=== PATIENT | male | born 1965 | race Caucasian/White ===

== ENCOUNTER 2017-03-07 14:04 | Emergency (ER) | payer OTHER ==
--- NOTE | 2017-03-07 14:42 | EDM.PDOC ---
ED HPI Trauma - General Chief Complaint: Upper Extremity Injury/Pain Stated Complaint: LT SHOULDER(COLLAR BONE) HURTS Time Seen by Provider: 03/07/17 14:42 Source: Reports: Patient History Limitations: Reports: No limitations - History of Present Illness INITIAL COMMENTS - FREE TEXT/NARRATIVE: HISTORY AND PHYSICAL: [52-year-old male who has had difficulty with his clavicles in the past from playing ball, presents with left clavicle pain with lifting] History of Present Illness: [Several days of pain is improved by morning but then turns with any movement lifting] Review of Systems: As per history of present illness and below otherwise all systems reviewed and negative. Past medical history: As per history of present illness and as reviewed below otherwise noncontributory. Surgical history: As per history of present illness and as reviewed below otherwise noncontributory. Social history: No reported history of drug or alcohol abuse. Family history: As per history of present illness and as reviewed below otherwise noncontributory. Physical exam: Alert gentleman denies any need for pain medication. Answers questions appropriate HEENT: Atraumatic, normocehpalic, pupils reactive, negative for conjunctival pallor or scleral icterus, mucous membranes moist, throat clear, neck supple, nontender, trachea midline. Lungs: Clear to auscultation, breath sounds equal bilaterally, chest tender over left clavicle. Heart: S1S2, regular, negative for clicks, rubs, or JVD. Abdomen: Soft, nondistended, nontender. Negative for masses or hepatossplenmegaly. Negative for costovertebral tenderness. Pelvis: Stable nontender. Genitourinary: Deferred. Rectal: Deferred Extremities: Atraumatic, negative for cords or calf pain. Neurovascular unremarkable. Neuro: Awake, alert, oriented. Cranial nerves II through XII unremarkable. Cerebellum unremarkable. Motor and sensory unremarkable throughout. Exam nonfocal. No fractures were noted on your x-ray. You do remain tender with examination. Diagnostics: [Left clavicle x-ray] Therapeutics: [] Impression: [chondritis] Plan: Tylenol arthritis twice a day Should your pain continue with suggest seeing the orthopedic [facility] [address], [address] [place] [address] ] Definitive disposition and diagnosis as appropriate pending reevaluation and review of above. Occurred When: yesterday Occurred Where: home Method of Injury: unknown Severity: moderate Pain/Injury Location: Reports: chest Consciousness: Reports: unsure Associated Symptoms: Reports: no other symptoms Allergies/ADRs: Allergies No Known Allergies Allergy (Verified 03/07/17 14:41) Home Medications: Ambulatory Orders Aspirin [Adult Low Dose Aspirin EC] 81 mg PO DAILY 03/07/17 [Confirmed 03/07/17] Hydrochlorothiazide 25 mg PO DAILY 03/07/17 [Confirmed 03/07/17] Insulin Glargine,Hum.Rec.Anlog [[place]ou[place]o Solostar] 30 unit SQ BEDTIME 03/07/17 [ Confirmed 03/07/17] Lisinopril 10 mg PO DAILY 03/07/17 [Confirmed 03/07/17] Metoprolol Tartrate 50 mg PO BID 03/07/17 [Confirmed 03/07/17] Nitroglycerin [Nitrostat] 0.4 mg SL Q5M PRN 03/07/17 [Confirmed 03/07/17] Prasugrel HCl [Effient] 10 mg PO DAILY 03/07/17 [Confirmed 03/07/17] Testosterone Cypionate [Depo-Testosterone] 200 mg IM WEEKLY 03/07/17 [Confirmed 03/07/17] atorvaSTATin [Lipitor] 40 mg PO BEDTIME 03/07/17 [Confirmed 03/07/17] metFORMIN HCl [Metformin HCl] 1,000 mg PO BID 03/07/17 [Confirmed 03/07/17] Review of Systems - Review of Systems Review Of Systems: ROS reveals no pertinent complaints other than HPI. Trauma Exam - Physical Exam Exam: See Below (See dictated) Course - Vital Signs Last Recorded V/S: Last Vital Signs Temp 36.4 C 03/07/17 16:01 Pulse 69 03/07/17 16:01 Resp 16 03/07/17 16:01 BP 120/70 03/07/17 16:01 Pulse Ox 96 03/07/17 16:01 - Orders/Labs/Meds Orders: Active Orders 24 hr Category Date Time Status Clavicle Lt [CR] Stat Exams 03/07/17 14:45 Taken Departure - Departure Time of Disposition: 16:04 Disposition: Home, Self-Care 01 Condition: good Clinical Impression: Pain of left clavicle Forms: ED Department Discharge - My Orders Last 24 Hours: My Active Orders 03/07/17 14:45 Clavicle Lt [CR] Stat - Assessment/Plan Last 24 Hours: My Active Orders 03/07/17 14:45 Clavicle Lt [CR] Stat
[2017-03-07 16:02] VITALS: BP 120/70
--- NOTE | 2017-03-09 16:44 | CR ---
EXAM DATE: 03/07/17 PATIENT'S AGE: 52 Patient: ADY DAVIS Facility: [place], [place] Site . Site : 1965 Study: XRay Extremity Left clavicle [id number]/6/2017 3:09:48 PM Ordering Physician: Doctor Sampson Final Report: Indication: Pain Technique: Left clavicle 2 views Comparison: None Findings: Bones: Alignment is normal. No fractures or bone lesions. Joint spaces: Unremarkable. Soft tissues: Unremarkable. Impression: No acute or significant findings to explain pain. Dictated by George Grimm MD @ 03/07/2017 3:42:04 PM Dictated by: George Grimm MD @ 03/07/2017 15:42:07 (Electronic Signature) Report Signed by Proxy. [facility]OSPITALElvin
== END 2017-03-07 16:14 | disposition home or self-care (01) ==
LOC: MW.ED 14:04
DX: M25.512 Pain in left shoulder (principal); M94.8X9 Other specified disorders of cartilage, unspecified sites; Z79.82 Long term (current) use of aspirin; Z79.4 Long term (current) use of insulin; Z79.899 Other long term (current) drug therapy
CPT/HCPCS: 73000-26-LT; 73000-LT; 99282; 99283

== ENCOUNTER 2017-10-06 08:34 | Day surgery (SDC) | payer OTHER ==
[~2017-10-06 08:34] MED LIST: Lactated Ringers 1,000 ML IV SCH
--- NOTE | 2017-10-06 09:33 | PCM.PREANE ---
Preanesthetic Assessment - Anesthesia/Transfusion/Family Hx Anesthesia History: Prior Anesthesia Without Reaction Family History of Anesthesia Reaction: No Transfusion History: No Prior Transfusion(s) - Review of Systems General: No Symptoms Pulmonary: No Symptoms Cardiovascular: No Symptoms Gastrointestinal: No Symptoms Neurological: No Symptoms Other: Reports: None - Physical Assessment NPO Status Date: 10/05/17 NPO Status Time: 23:00 O2 Sat by Pulse Oximetry: 96 Respiratory Rate: 16 Vital Signs: Last Vital Signs Temp 36.5 C 10/06/17 09:00 Pulse 82 10/06/17 09:00 Resp 16 10/06/17 09:00 BP 140/81 10/06/17 09:00 Pulse Ox 96 10/06/17 09:00 Height: 1.83 m Weight: 126.552 kg ASA Class: 3 Mental Status: Alert & Oriented x3 Airway Class: Mallampati = 2 Dentition: Reports: Normal Dentition ROM/Head Extension: Full Lungs: Clear to Auscultation, Normal Respiratory Effort Cardiovascular: Regular Rate, Regular Rhythm - Allergies Allergies/Adverse Reactions: Allergies Allergy/AdvReac Type Severity Reaction Status Date / Time No Known Allergies Allergy Verified 03/07/17 14:41 - Blood Product(s) Available: None - Acknowledgements Anesthesia Type Planned: MAC Pt an Appropriate Candidate for the Planned Anesthesia: Yes Alternatives and Risks of Anesthesia Discussed w Pt/Guardian: Yes Pt/Guardian Understands and Agrees with Anesthesia Plan: Yes Additional Comments: PMH, CAD with vasospastic angina and stents x 3, AMI in 1015, HTN, HLD, DM2, had SADIA but sx relieved with UP3, last sleep study was normal for SDAIA PreAnesthesia Questionnaire Cardiovascular History: Reports: CAD, High Cholesterol, Hypertension, CO, Stents Respiratory History: Reports: Other (See Below) Other Respiratory History: sleep apnea in the past, previous surgery for this Gastrointestinal History: Reports: Other (See Below) Other Gastrointestinal History: occasional heartburn Genitourinary History: Reports: None Musculoskeletal History: Reports: Arthritis Endocrine/Metabolic History: Reports: Diabetes, Type II, Obesity/BMI 30+ - Past Surgical History Head Surgeries/Procedures: Reports: None HEENT Surgical History: Reports: Adenoidectomy, Tonsillectomy, Other (See Below) Other HEENT Surgeries/Procedures: sleep apnea surgery (T&A, uvulectomy and portion of soft palate removed -one surgery for tx of sleep apnea) Cardiovascular Surgical History: Reports: Coronary Artery Stent Musculoskeletal Surgical History: Reports: Other (See Below) Other Musculoskeletal Surgeries/Procedures:: right great toe surgery joint fusion with bone graft - SUBSTANCE USE Smoking Status *Q: Never Smoker Second Hand Smoke Exposure: No Recreational Drug Use History: No - HOME MEDS Home Medications: Home Meds Hydrochlorothiazide 25 mg PO DAILY 03/07/17 [History] Insulin Glargine,Hum.Rec.Anlog [Toujeo Solostar] 30 unit SQ BEDTIME 03/07/17 [ History] Lisinopril 10 mg PO DAILY 03/07/17 [History] Nitroglycerin [Nitrostat] 0.4 mg SL Q5M PRN 03/07/17 [History] Prasugrel HCl [Effient] 10 mg PO DAILY 03/07/17 [History] Testosterone Cypionate [Depo-Testosterone] 0.5 ml IM ASDIRECTED 03/07/17 [ History] atorvaSTATin [Lipitor] 20 mg PO BEDTIME 03/07/17 [History] metFORMIN HCl [Metformin HCl] 1,000 mg PO BID 03/07/17 [History] Aspirin [[place] Aspirin] 81 mg PO DAILY 10/01/17 [History] Empagliflozin [Jardiance] 25 mg PO ASDIRECTED 10/01/17 [History] Insulin Lispro [Humalog Kwikpen U-100] 1 injection SUBCUT ASDIRECTED 10/01/17 [ History] Nebivolol HCl [Bystolic] 5 mg PO DAILY 10/01/17 [History] Tadalafil [Cialis] 20 mg PO ASDIRECTED PRN 10/01/17 [History] - CURRENT (IN HOUSE) MEDS Current Meds: Current Medications Lactated Ringer's (Ringers, Lactated) 1,000 mls @ 125 mls/hr IV ASDIRECTED DAGOBERTO Last Admin: 10/06/17 09:03 Dose: 125 mls/hr
[2017-10-06] MEDS ORDERED: Lidocaine 2% 5 ML SDV ONE (11:05)
[2017-10-06] MEDS ORDERED: Propofol 200 MG/20 ML SDV ONE ×2 (11:05→11:06)
--- NOTE | 2017-10-06 11:53 | PCM.OPNOTE ---
- General Post-Op/Procedure Note Date of Surgery/Procedure: 10/06/17 Operative Procedure(s): colonoscopy w bx Findings: see dict [id number] Pre Op Diagnosis: scrn colonoscopy Post-Op Diagnosis: colon polyp Anesthesia Technique: Moderate Sedation Primary Surgeon: Luca Fernandez Pathology: question polyp in the cecum, 2 mm, bx Complications: None Condition: Good
--- NOTE | 2017-10-06 12:36 | OR ---
SURGEON: Luca Fernandez MD DATE OF PROCEDURE: 10/06/2017 PREOPERATIVE DIAGNOSIS: Screening colonoscopy. POSTOPERATIVE DIAGNOSIS: Colon polyp. PROCEDURE PERFORMED: Colonoscopy with biopsy. FINDINGS: 1. The patient is easily sedated with OPERATIONS WELDER and Diprivan. The patient is soundly snoring. 2. Bowel prep was average with some liquid stool. No semi-formed stool. 3. The patient's colon is rather straight forward. Cecum indicated by ileocecal fold, one-to-one indentation, light emittance, appendiceal orifice, and mucosa examined with scope pulling out with some irrigation from residual liquid stool. At the cecum, there is that may be a polyp. It is not quite sure. Looked like a sucker polyp, but anyway we biopsied and then the patient's mucosa continued to examine upon scope pulling out. The patient does not have other polyp, diverticulosis, mass, growth, inflammation, stricture, AV malformation, bleeding, or ulceration. None of those. The patient has mild internal hemorrhoids and has some mild external hemorrhoids. The patient would benefit from a repeat colonoscopy 10 years from today or if the polyp proved to be otherwise or clinically indicated otherwise. The patient stopped the Effient and aspirin for the procedure. The cardiology recommended to continue aspirin, but the patient stopped it by himself 2 days ago. The patient is to resume the aspirin and Effient tonight. DESCRIPTION OF PROCEDURE: The patient was taken to the endoscopy room. A time out was called, patient identified, and procedure identified. Diprivan was then administrated. Patient went from awake to sleep, hearing doctor talking or door closing is normal. Perineum inspection and digital examination were then performed. A well- lubricated colonoscope was gently inserted through the rectum, advanced past the rectosigmoid junction, the descending colon, splenic flexure, transverse colon, hepatic flexure, ascending colon, arrived to the cecum. Cecum was identified as dictated in the finding. Then the scope was carefully withdrawn while attention was paid to the mucosal surface for any abnormality. Air will be sucked out during the scope withdrawal. At the rectum, retroflexed to examine any rectal diseases, fistula or hemorrhoids. During mucosal examination, polyp was noted; picture taken and biopsy performed. The patient tolerated procedure well. There were no intraoperative complications, and Dr. Fernandez was present throughout the whole procedure. As always, thank you for the kind referral. PRIMARY SURGEON: SECONDARY SURGEON: ICE SKATING INSTRUCTOR: REASON ICE SKATING INSTRUCTOR WAS NECESSARY: ROLE OF ICE SKATING INSTRUCTOR: NE HARRISON /[id number] MTDD
[2017-10-06 13:12] VITALS: BP 133/83
--- NOTE | 2017-10-06 13:34 | PCM48HPAN ---
Post Anesthesia Note - EVALUATION WITHIN 48HRS OF ANESTHETIC Vital Signs in Normal Range: Yes Patient Participated in Evaluation: Yes Respiratory Function Stable: Yes Airway Patent: Yes Cardiovascular Function Stable: Yes Hydration Status Stable: Yes Pain Control Satisfactory: Yes Nausea and Vomiting Control Satisfactory: Yes Mental Status Recovered: Yes
--- NOTE | 2017-10-06 13:34 | PCM.POSTAN ---
POST ANESTHESIA ASSESSMENT - MENTAL STATUS Mental Status: Alert, Oriented - RESPIRATORY Respiratory Status: Respiratory Rate WNL, Airway Patent, O2 Saturation Stable - CARDIOVASCULAR CV Status: Pulse Rate WNL, Blood Pressure Stable - GASTROINTESTINAL GI Status: No Symptoms - POST OP HYDRATION Hydration Status: Adequate & Stable
== END 2017-10-06 12:30 | disposition home or self-care (01) ==
LOC: MW.SDS 08:34
PROVIDERS: ATTEND Surgery
DX: Z12.11 Encounter for screening for malignant neoplasm of colon (principal); K63.5 Polyp of colon; K64.8 Other hemorrhoids; K64.4 Residual hemorrhoidal skin tags; I25.10 Atherosclerotic heart disease of native coronary artery without angina pectoris; I10 Essential (primary) hypertension; M19.90 Unspecified osteoarthritis, unspecified site; E78.00 Pure hypercholesterolemia, unspecified; E11.9 Type 2 diabetes mellitus without complications; I25.2 Old myocardial infarction; E66.9 Obesity, unspecified; Z68.37 Body mass index [BMI] 37.0-37.9, adult; Z95.5 Presence of coronary angioplasty implant and graft; Z98.1 Arthrodesis status; Z98.890 Other specified postprocedural states; Z80.3 Family history of malignant neoplasm of breast; Z79.899 Other long term (current) drug therapy; Z79.4 Long term (current) use of insulin; Z79.82 Long term (current) use of aspirin
CPT/HCPCS: 45380; J7120; 00810; 88305; J2704

== ENCOUNTER 2019-12-27 06:11 | Day surgery (SDC) | payer OTHER ==
[~2019-12-27 06:11] MED LIST changes: +Sodium Chloride 0.9% 10 ML SDV IV PRN; +Sodium Chloride 0.9% 10 ML Syringe FLUSH PRN; +Sodium Chloride 0.9% 2.5 ML Syringe FLUSH PRN; +ceFAZolin 2 GM in Premix Bag 1 BAG IV ONE
[2019-12-27] MEDS ORDERED: fentaNYL 100 MCG/2 ML SDV ONE (07:02)
[2019-12-27] MEDS ORDERED: Propofol 200 MG/20 ML SDV ONE (07:02)
[2019-12-27] MEDS ORDERED: Glycopyrrolate 0.2 MG/ML SDV ONE (07:03)
[2019-12-27] MEDS ORDERED: Lidocaine 2% 5 ML SDV ONE (07:03)
[2019-12-27] MEDS ORDERED: Ondansetron 4 MG/2 ML SDV ONE (07:03)
[2019-12-27] MEDS ORDERED: Midazolam 1 MG/ML 2 ML SDV ONE (07:03)
[2019-12-27] MEDS ORDERED: Ketorolac 30 MG/ML SDV ONE (07:03)
--- NOTE | 2019-12-27 07:26 | PCM.PREANE ---
Preanesthetic Assessment - Anesthesia/Transfusion/Family Hx Anesthesia History: Prior Anesthesia Without Reaction Family History of Anesthesia Reaction: No Transfusion History: No Prior Transfusion(s) - Review of Systems General: No Symptoms Pulmonary: No Symptoms Cardiovascular: No Symptoms Gastrointestinal: No Symptoms Neurological: No Symptoms Other: Reports: None - Physical Assessment NPO Status Date: 12/26/19 Height: 6 ft 1 in Weight: 122.47 kg ASA Class: 3 Mental Status: Alert & Oriented x3 Airway Class: Mallampati = 2 Dentition: Reports: Normal Dentition ROM/Head Extension: Full Lungs: Clear to Auscultation, Normal Respiratory Effort Cardiovascular: Regular Rate, Regular Rhythm - Lab Values: Laboratory Last Values POC Glucose 167 mg/dL (60-110) H 12/27/19 07:10 - Allergies Allergies/Adverse Reactions: Allergies Allergy/AdvReac Type Severity Reaction Status Date / Time adhesive Allergy Rash Verified 12/22/19 12:05 [id number]-Baf-Orz Reductase Allergy Other Verified 12/22/19 12:04 Inhibitor - Blood Blood Available: No - Anesthesia Plan Pre-Op Medication Ordered: None - Acknowledgements Anesthesia Type Planned: General Anesthesia Pt an Appropriate Candidate for the Planned Anesthesia: Yes Alternatives and Risks of Anesthesia Discussed w Pt/Guardian: Yes Pt/Guardian Understands and Agrees with Anesthesia Plan: Yes Additional Comments: PMH" cad with stents, htn, hld, dm2 on insulin, hx of SADIA resolved after UP3 surgery PLAN: ga/lma PreAnesthesia Questionnaire HEENT History: Reports: Other (See Below) Other HEENT History: uses reading glasses Cardiovascular History: Reports: High Cholesterol, Hypertension, CA, Other (See Below) Other Cardiovascular History: 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 ([place])- this artery spasmed and on relaxation had only 5% blood flow- caused an CA that did not show on EKG or Troponin levels, 2 stents placed in this artery Respiratory History: Reports: Other (See Below) Other Respiratory History: no snoring since surgery to correct Gastrointestinal History: Reports: Other (See Below) Other Gastrointestinal History: occasional heartburn Genitourinary History: Reports: None Musculoskeletal History: Reports: Fracture Other Musculoskeletal History: hx of fx fingers and toes Psychiatric History: Reports: PTSD Endocrine/Metabolic History: Reports: IDDM, Obesity/BMI 30+ Immunologic History: Reports: Other (See Below) Other Immunologic History: 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- takes Immune Globulins monthly - Past Surgical History Head Surgeries/Procedures: Reports: None HEENT Surgical History: Reports: Adenoidectomy, Oral Surgery, Tonsillectomy Other HEENT Surgeries/Procedures: hx of reduction of soft palate and partial Uvulectomy for snoring Cardiovascular Surgical History: Reports: Coronary Artery Stent Other Cardiovascular Surgeries/Procedures: Angioplasty with stents x3, 4 years ago, denies chest pain and SOB Musculoskeletal Surgical History: Reports: Other (See Below) Other Musculoskeletal Surgeries/Procedures:: Reconstruction of right great toe- has hardware - SUBSTANCE USE Smoking Status *Q: Never Smoker Recreational Drug Use History: No - HOME MEDS Home Medications: Home Meds Hydrochlorothiazide 25 mg PO BEDTIME 03/07/17 [History] Insulin Glargine,Hum.Rec.Anlog [[place] Solostar] 30 unit SQ QAM 03/07/17 [ History] Lisinopril 20 mg PO QAM 03/07/17 [History] Nitroglycerin [Nitrostat] 0.4 mg SL Q5M PRN 03/07/17 [History] Testosterone Cypionate [Depo-Testosterone] 200 mg IM WEEKLY 03/07/17 [History] Aspirin [[place] Aspirin EC] 81 mg PO DAILY 10/01/17 [History] Alirocumab [Praluent Pen] 150 mg IM ASDIRECTED 12/22/19 [History] Empagliflozin/Metformin HCl [Synjardy 12.5-1,000 mg Tablet] 1 tab PO BID [History] Icosapent Ethyl [Vascepa] 21 gm PO BID 12/22/19 [History] Immun Glob G(IgG)/Gly/Iga 0-50 [[place] 10 Gram/100 ml Vial] 10 gm IV ASDIRECTED 12/22/19 [History] Insulin Lispro [Humalog Kwikpen U-200] 0 unit SQ ASDIRECTED 12/22/19 [History] Nebivolol HCl [Bystolic] 5 mg PO QAM 12/22/19 [History] Prasugrel HCl [Effient] 10 mg PO DAILY 12/22/19 [History] Sildenafil Citrate 20 mg PO ASDIRECTED PRN 12/22/19 [History] Ubidecarenone [Co Q-10] 200 mg PO DAILY 12/22/19 [History] - CURRENT (IN HOUSE) MEDS Current Meds: Current Medications Lactated Ringer's (Ringers, Lactated) 1,000 mls @ 125 mls/hr IV ASDIRECTED DAGOBERTO Sodium Chloride (Saline Flush) 10 ml FLUSH ASDIRECTED PRN PRN Reason: Keep Vein Open Sodium Chloride (Saline Flush) 2.5 ml FLUSH ASDIRECTED PRN PRN Reason: Keep Vein Open Sodium Chloride (Normal Saline) 10 ml IV ASDIRECTED PRN PRN Reason: IV Use Discontinued Medications Fentanyl (Sublimaze) Confirm Administered Dose 100 mcg .ROUTE .STK-MED ONE Stop: 12/27/19 07:03 Glycopyrrolate (Robinul) Confirm Administered Dose 0.2 mg .ROUTE .STK-MED ONE Stop: 12/27/19 07:04 Cefazolin Sodium/Dextrose 2 gm (/ Premix) 50 mls @ 100 mls/hr IV ONETIME ONE Stop: 12/26/19 17:07 Ketorolac Tromethamine (Toradol) Confirm Administered Dose 30 mg .ROUTE .STK- MED ONE Stop: 12/27/19 07:04 Lidocaine (Xylocaine-Mpf 2%) Confirm Administered Dose 5 ml .ROUTE .STK-MED ONE Stop: 12/27/19 07:04 Midazolam HCl (Versed 1 Mg/Ml) Confirm Administered Dose 2 mg .ROUTE .STK-MED ONE Stop: 12/27/19 07:04 Ondansetron HCl (Zofran) Confirm Administered Dose 4 mg .ROUTE .STK-MED ONE Stop: 12/27/19 07:04 Propofol (Diprivan 20 Ml) Confirm Administered Dose 200 mg .ROUTE .STK-MED ONE Stop: 12/27/19 07:03
[2019-12-27] MEDS ORDERED: Sodium Chloride 0.9% 20 ML ONE (07:34)
[2019-12-27] MEDS ORDERED: Octyl 2-Cyanoacrylate 1 Tube ONE (07:34)
[2019-12-27] MEDS ORDERED: Heparin Sodium 100 Units/ML 3 ML Syringe ONE (07:34)
[2019-12-27] MEDS ORDERED: Bupivacaine 0.5% 10 ML SDV ONE (07:34)
[2019-12-27] MEDS ORDERED: ceFAZolin 1 GM Vial ONE (07:34)
[2019-12-27] MEDS ORDERED: Iopamidol 200-M 10 ML vial ITHECAL ONE (07:35)
[2019-12-27] MEDS ORDERED: Lidocaine 1% 20 ML MDV ONE (07:35)
[2019-12-27] MEDS ORDERED: Phenylephrine/Normal Saline 100 MCG/ML 10 ML Syringe ONE (08:23)
--- NOTE | 2019-12-27 09:07 | PCM.OPNOTE ---
<Aristides Nash M - Last Filed: 12/27/19 09:03> - General Post-Op/Procedure Note Date of Surgery/Procedure: 12/27/19 Operative Procedure(s): Right internal jugular vein port-a-cath placement Pre Op Diagnosis: Myopathy Post-Op Diagnosis: Myopathy Anesthesia Technique: General ET Tube Primary Surgeon: Joelle Martinez Fluid Replacement, Intraop: 700 EBL in mLs: 15 Condition: Stable <Joelle Martinez M - Last Filed: 12/27/19 09:09> - General Post-Op/Procedure Note Anesthesia Technique: General LMA Free Text/Narrative:: Intake & Output 12/26/19 12/27/19 12/27/19 22:59 06:59 14:59 Intake Total 700 Balance 700
--- NOTE | 2019-12-27 10:36 | CR ---
Chest: AP view of the chest was obtained. Comparison: No prior chest imaging is available. Heart size and mediastinum are normal. Lungs are clear. Right-sided infusion port is seen. Tip lies within the upper superior vena cava. Bony structures are grossly intact. Impression: 1. Tip of Port-A-Cath within the upper superior vena cava. 2. Nothing acute is otherwise seen on AP chest x-ray. Diagnostic code #2 This report was dictated in [place] Standard Time
--- NOTE | 2019-12-27 12:33 | PCM48HPAN ---
Post Anesthesia Note - EVALUATION WITHIN 48HRS OF ANESTHETIC Vital Signs in Normal Range: Yes Patient Participated in Evaluation: Yes Respiratory Function Stable: Yes Airway Patent: Yes Cardiovascular Function Stable: Yes Hydration Status Stable: Yes Pain Control Satisfactory: Yes Nausea and Vomiting Control Satisfactory: Yes Mental Status Recovered: Yes Vital Signs: Last Vital Signs Temp 96.6 F L 12/27/19 09:14 Pulse 68 12/27/19 09:29 Resp 17 12/27/19 09:29 BP 108/66 12/27/19 09:29 Pulse Ox 94 L 12/27/19 09:29
--- NOTE | 2019-12-27 12:33 | PCM.POSTAN ---
POST ANESTHESIA ASSESSMENT - MENTAL STATUS Mental Status: Alert, Oriented - VITAL SIGNS Vital Signs: Last Vital Signs Temp 96.6 F L 12/27/19 09:14 Pulse 68 12/27/19 09:29 Resp 17 12/27/19 09:29 BP 108/66 12/27/19 09:29 Pulse Ox 94 L 12/27/19 09:29 - RESPIRATORY Respiratory Status: Respiratory Rate WNL, Airway Patent, O2 Saturation Stable - CARDIOVASCULAR CV Status: Pulse Rate WNL, Blood Pressure Stable - GASTROINTESTINAL GI Status: No Symptoms - POST OP HYDRATION Hydration Status: Adequate & Stable
[2019-12-27 13:18] VITALS: BP 114/67; PULSE 60
--- NOTE | 2019-12-27 17:05 | CR ---
Chest: 2 fluoroscopic spot views were obtained during Port-A-Cath placement of the right upper chest utilizing C-arm device. Study shows placement of a Port-A-Cath. Tip of catheter lies within the proximal superior vena cava. Fluoroscopy time given as 60 seconds Impression: 1. Procedural study as noted above. Diagnostic code #2 This report was dictated in [place] Standard Time
--- NOTE | 2019-12-28 12:02 | OR ---
SURGEON: JOELLE MARTINEZ MD DATE OF PROCEDURE: 12/27/2019 PREOPERATIVE DIAGNOSIS: Myopathy. POSTOPERATIVE DIAGNOSIS: Myopathy. PROCEDURE PERFORMED: Right internal jugular Port-A-Cath placement. PRIMARY SURGEON: Joelle Martinez MD. ANESTHESIA: General LMA. FLUIDS: 700 mL of crystalloid. ESTIMATED BLOOD LOSS: 15 mL. FINDINGS: Right internal jugular vein Port-A-Cath placement. COMPLICATIONS: None. INDICATIONS: The patient is a 54-year-old male who presents for Port-A-Cath placement due to myopathy. He receives at home IV drug infusions by home nurse on a scheduled basis. The patient and I discussed the procedure; expected perioperative course; and risks including bleeding, infection, or damage to surrounding structures including hemothorax or pneumothorax. He verbalized understanding and wishes to proceed. PROCEDURE IN DETAIL: The patient was brought into the OR and placed on the OR table in supine position. A time-out was completed verifying the patient's name, age, date of , allergies, and procedure to be performed. General LMA anesthesia was induced. An ultrasound was used to verify the vascular anatomy of the right side of the neck. A photograph of this ultrasound was taken and placed in the patient's chart. The neck and chest were prepped and draped in the usual standard fashion. The patient was placed into Trendelenburg position. Using a sterile ultrasound, I re-identified the vascular anatomy of the right side of the neck. I anesthetized the area overlying the right internal jugular vein with 0.5% Marcaine plain. I then also anesthetized my tunneling tract as well as my chest wall site. Under ultrasound guidance, I guided a guide needle into the right internal jugular vein. I aspirated venous blood. A guidewire was placed down the needle into the right internal jugular vein. The guide needle was removed. The ultrasound was used to verify placement of the guidewire within the internal jugular vein. A C-arm was then brought in and a chest x-ray taken, which showed placement of the guidewire in correct position. The guidewire was clamped to the drapes, and I turned my attention to the right upper chest wall. A 3 cm incision was made using an 11 blade two fingerbreadths below the midclavicular line. Cautery was used to dissect down to the level of subcutaneous fat and create a subcutaneous pocket up against the chest wall. A tunneling device was then used to tunnel the catheter tubing from the chest wall site up to the guidewire on the neck. A vascular sheath and dilator were then placed over the top of the guidewire. Under fluoroscopic guidance, I dilated my vascular tract. The dilator and guidewire were removed. The catheter tubing was placed down the vascular sheath into the superior vena cava. The vascular sheath was then removed. I used fluoroscopy to pull the catheter tubing back into the superior vena cava. The catheter tubing was then aspirated and a good return of venous blood was noted. The catheter tubing was then flushed with injectable saline. It was trimmed to 25 cm and placed on the Port-A-Cath device. The Port-A-Cath device was accessed and a good return of venous blood was noted. It was then locked with 4 mL of heparinized saline. It was placed in the subcutaneous chest wall pocket and secured on either side with 2-0 Prolene suture. This incision was then closed with interrupted 3-0 Vicryl in the subcutaneous fat layer and the skin was closed with a running 4-0 Monocryl stitch. The insertion site at the neck was closed with interrupted 4-0 Monocryl suture. Dermabond and sterile dressings were applied. The patient tolerated the procedure well. A postoperative chest x-ray showed good placement of the Port-A-Cath device with no acute complications. All counts were complete and correct at the end of the case. TAMI HARRISON /[id number]
== END 2019-12-27 11:10 | disposition home or self-care (01) ==
LOC: MW.SDS 06:11
PROVIDERS: ATTEND Surgery
DX: G72.49 Other inflammatory and immune myopathies, not elsewhere classified (principal); I10 Essential (primary) hypertension; E11.9 Type 2 diabetes mellitus without complications; I25.10 Atherosclerotic heart disease of native coronary artery without angina pectoris; Z88.8 Allergy status to other drugs, medicaments and biological substances; Z79.82 Long term (current) use of aspirin; Z79.899 Other long term (current) drug therapy; Z87.891 Personal history of nicotine dependence; E66.9 Obesity, unspecified; Z68.35 Body mass index [BMI] 35.0-35.9, adult
CPT/HCPCS: 36561; 71045; 76000; 82962; A9270; J0690; J1642; J1885; J2001; J2250; J2370; J2405; J2704; J3010; J3490; J7120; Q9966